=== PATIENT | female | born 2000 | race Caucasian/White ===

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

== ENCOUNTER 2019-03-27 11:59 | Outpatient (CLI) | payer MEDICAID | END 2019-03-27 23:59 | disposition home or self-care (01) | LOC: RAD 11:59 | PROVIDERS: ATTEND Registered Nurse | DX: G93.2 Benign intracranial hypertension (principal); H47.10 Unspecified papilledema; F43.10 Post-traumatic stress disorder, unspecified | CPT/HCPCS: 95816 ==

== ENCOUNTER 2019-06-22 18:07 | Emergency (ER) | payer OTHER, MEDICAID ==
[~2019-06-22] VITALS: Ht 172.7 cm; Wt 90.0 kg
[2019-06-22] MEDS ORDERED: ORPH100T2 PO (19:20)
[2019-06-22 19:28] VITALS: BP 132/84
== END 2019-06-22 19:25 | disposition home or self-care (01) ==
LOC: ER 18:08
DX: S09.90XA Unspecified injury of head, initial encounter (principal); G44.209 Tension-type headache, unspecified, not intractable; F31.9 Bipolar disorder, unspecified; Z79.899 Other long term (current) drug therapy; V98.8XXA Other specified transport accidents, initial encounter; Y93.89 Activity, other specified; Y92.488 Other paved roadways as the place of occurrence of the external cause; Y99.8 Other external cause status
CPT/HCPCS: 99283

== ENCOUNTER 2020-08-11 11:43 | Outpatient (CLI) | payer MEDICAID ==
[2020-08-11] VITALS (18 sets, daily range): BP systolic 99–128; BP diastolic 64–80
[~2020-08-11 11:43] MED LIST changes: +ORPH100T2 PO
== END 2020-08-11 23:59 | disposition home or self-care (01) ==
LOC: CARD DIAG 11:43
PROVIDERS: ATTEND Family Medicine
DX: R55 Syncope and collapse (principal)
CPT/HCPCS: 93660

== ENCOUNTER 2021-08-27 19:25 | Emergency (ER) | payer MEDICAID ==
[~2021-08-27] VITALS: Ht 170.2 cm; Wt 77.3 kg
[2021-08-27 20:05] VITALS: BP 110/74
[2021-08-27] MEDS ORDERED: dexamethasone sod phosphate 10mg/ml inj IM STA (20:27)
[2021-08-27] MEDS ORDERED: amox tr/potassium clavulanate 875/125mg TAB PO ONE (20:30)
[2021-08-27] MEDS ORDERED: clindamycin 150mg capsule PO ONE (20:30)
[2021-08-27] MEDS ORDERED: DEC4T PO (20:36)
[2021-08-27] MEDS ORDERED: AMOX-117 PO (20:36)
[2021-08-27] MEDS ORDERED: CLIN300C71 PO (20:36)
== END 2021-08-27 20:52 | disposition home or self-care (01) ==
LOC: ER 19:26
DX: K04.7 Periapical abscess without sinus (principal); Z88.8 Allergy status to other drugs, medicaments and biological substances; Z79.899 Other long term (current) drug therapy; Z31.9 Encounter for procreative management, unspecified
CPT/HCPCS: 96372; 99283; J1100

== ENCOUNTER 2022-07-09 14:22 | Emergency (ER) | payer MEDICAID ==
[~2022-07-09] VITALS: Ht 172.7 cm; Wt 86.4 kg
[~2022-07-09 14:22] MED LIST changes: +DEC4T PO; -NORE-87 PO; +[UNRECOGNIZED DRUG - CODE] PO
[2022-07-09 14:34] VITALS: BP 132/59
[2022-07-09] MEDS ORDERED: ondansetron/PF 4mg/2ml inj IV ONE (15:45)
[2022-07-09] MEDS ORDERED: normal saline 1000ML IV soln IVB ONE (15:45)
[2022-07-09 15:57] LABS: BASOPHILS % (AUTO) 0.3 % (0-1); EOSINOPHILS % (AUTO) 1.2 % (0-6); HEMOGLOBIN 13.2 g/dl (12.0-16.0); LYMPHOCYTES # (AUTO) 1.8 X10'3 (1.1-4.8); LYMPHOCYTES % (AUTO) 42.9 % (21-51); MEAN CORPUSCULAR HEMOGLOBIN 28.9 PG (27.0-31.0); MEAN CORPUSCULAR HGB CONC 33.9 g/dL (33.0-36.5); MEAN CORPUSCULAR VOLUME 85.3 FL (78-98); MEAN PLATELET VOLUME 8.4 FL (7.4-10.4); MONOCYTES # (AUTO) 0.5 X10'3 (0-0.9); MONOCYTES % (AUTO) 10.8 % (2-12); NEUTROPHILS # (AUTO) 1.9 X10'3 (1.8-7.7); NEUTROPHILS % (AUTO) 44.8 % (42-75); PLATELET COUNT 155 X10'3 (140-440); RED BLOOD COUNT 4.58 X10'6 (4.20-5.60); RED CELL DISTRIBUTION WIDTH 12.3 % (11.5-14.5); WHITE BLOOD COUNT 4.3 X10'3 (4.5-11.0)
[2022-07-09 16:11] LABS: ALANINE AMINOTRANSFERASE 41 U/L (12-78); ALBUMIN 3.9 G/DL (3.4-5.0); ALKALINE PHOSPHATASE 65 IU/L (46-116); ANION GAP 9 (8-16); ASPARTATE AMINO TRANSFERASE 27 U/L (10-37); BILIRUBIN,TOTAL 0.3 MG/DL (0.1-1.0); BLOOD UREA NITROGEN 9 MG/DL (7-18); BUN/CREATININE RATIO 11.8 (6.6-38.0); CALCIUM 8.7 MG/DL (8.5-10.1); CHLORIDE 105 MMOL/L (99-107); CREATININE 0.76 MG/DL (0.40-0.90); GLUCOSE 92 MG/DL (70-104); POTASSIUM 3.7 MMOL/L (3.5-5.1); SODIUM 140 MMOL/L (135-145); TOTAL CARBON DIOXIDE 26.5 MMOL/L (24-32); TOTAL PROTEIN 7.8 G/DL (6.4-8.2); eGFR > 90 ML/MIN
[2022-07-09 16:13] LABS: CLARITY,URINE CLEAR (Clear); COLOR,URINE YELLOW (Yellow); GLUCOSE, URINE NEGATIVE (Neg); KETONES,URINE NEGATIVE (Neg); LEUKOCYTE ESTERASE ,URINE NEGATIVE (Neg); NITRITES, URINE NEGATIVE (Neg); OCCULT BLOOD,URINE NEGATIVE (Neg); PH,URINE 7.5 (4.8-8.0); PROTEIN,URINE NEGATIVE (Neg); UROBILINOGEN,URINE 0.2 E.U/dL (0.2-1.0)
[2022-07-09] MEDS ORDERED: ONDA4TAB12 PO (16:34)
[2022-07-09 16:37] LABS: UA COLLECTION TYPE CLN CATCH MIDSTREAM
== END 2022-07-09 17:25 | disposition home or self-care (01) ==
LOC: ER 14:22
DX: B34.9 Viral infection, unspecified (principal); J06.9 Acute upper respiratory infection, unspecified; R19.7 Diarrhea, unspecified; R53.83 Other fatigue; F31.9 Bipolar disorder, unspecified; Z88.8 Allergy status to other drugs, medicaments and biological substances
CPT/HCPCS: 36415; 71045; 80053; 81003; 85025; 96374; 99284; J2405; J7030

== ENCOUNTER 2025-07-04 12:34 | Emergency (ER) | payer MEDICAID ==
[~2025-07-04] VITALS: Ht 172.7 cm; Wt 78.4 kg
[~2025-07-04 12:34] MED LIST changes: +ONDA-243 PO; -ORPH100T2 PO; +ORPH100T4 PO; +[UNRECOGNIZED DRUG - CODE] PO; -[UNRECOGNIZED DRUG - CODE] PO
[2025-07-04 12:46] VITALS: TEMP 97.5
--- NOTE | 2025-07-04 12:52 | Physician Documentation ---
History of Present Illness ~ Chief Complaint: Shortness of Breath Stated Complaint: POSS PULMONARY BLOOD CLOTS Time Seen by MD: 15:57 Primary Medical Doctor: galdino lugo Source: patient Mode of Arrival: POV Exam Limitations: no limitations HPI 25-year-old female [facility] department due to elevated D-dimer and pulmonary artery. Patient is actively miscarrying at 9 weeks. Patient started bleeding and miscarrying 3 days ago. Patient went in to [facility] for chest pain and shortness of breath. She apparently had an elevated D-dimer. Patient states the chest pain and shortness of breath has worsened over the night. Patient states that this is her 5th miscarriage has 1 live child. 6 para 1 concerns for pulmonary embolism Medication Reconciliation Allergies: Coded Allergies: diphenhydramine (Verified Allergy, Severe, PSYCHOSIS AND TERRORS, 07/04/25) prochlorperazine (Verified Allergy, Severe, PSYCHOSIS AND TERRORS, 07/04/25) fentanyl (Verified Allergy, Unknown, 07/04/25) Discontinued Medications Aripiprazole (Abilify), 1 TAB PO HS, (Reported) Discontinued Reason: completed med therapy Dexamethasone (Decadron), 8 MG PO ONCE Discontinued Reason: patient no longer taking Escitalopram Oxalate (Lexapro), 1 TAB PO HS, (Reported) Discontinued Reason: patient no longer taking Norethindrone-E.estradiol-Iron (Microgestin Fe 1-20 Tablet), 1 TABLET PO DAILY, (Reported) Discontinued Reason: patient no longer taking ONDANSETRON ODT 4mg tablet (Ondansetron Odt), 1 TABLET PO Q6H Discontinued Reason: patient no longer taking Orphenadrine Citrate (Norflex), 1 TAB PO Q12H PRN Discontinued Reason: patient no longer taking Past Medical History Past Medical History: *RENAL/*, Bipolar Past Surgical History: no surgical history Alcohol Use: None Drug Use: none Lives with: Family Lives In: Home Occupation: employed Review of Systems All Other Systems at this time: Reviewed and Negative ROS As stated above in the HPI, otherwise all systems are reviewed and negative. Respiratory: Reports: see HPI Physical Exam Vital Signs: RN Vital Signs have been reviewed: Yes, Temperature: 97.5, Source: Temporal, Heart Rate: 76, Respiratory Rate: 18, BP: 127/56, Pulse Oximetry: 97, Weight: 78.400 Oxygen Flow Rate: 0 Physical Exam General: Alert, no apparent distress. HEENT: moist mucous membranes. Neck: Full range of motion. Respiratory: No respiratory distress speaking in full sentences Chest: No accessory muscle use. Cardiovascular: Appears well perfused Neurologic: Oriented x4. Psychiatric: Normal mood and affect. Skin: Normal color, warm and dry. No edema, no ecchymosis. Progress Results/Orders Results/Orders Orders - [facility] [employer] Cta Chest Pe (07/04/25 18:00) Completed Orders - [facility] [employer] Cta Chest Pe (07/04/25 18:00) Iohexol 350mg/Ml 100ml (Omnipaque 350mg/ (07/04/25 17:42) Vital Signs 07/04/25 07/04/25 07/04/25 07/04/25 12:46 18:00 18:03 18:04 Temp 97.5 Pulse 76 74 Resp 18 16 17 B/P (MAP) 127/56 108/57 (74) Pulse Ox 97 100 100 O2 Delivery Room Air* O2 Flow Rate 0 0 0 FiO2 21 21 Laboratory Tests Test 07/04/25 13:15 07/04/25 15:29 07/04/25 16:26 White Blood Count 5.8 Red Blood Count 4.58 Hemoglobin 13.2 Hematocrit 39.3 Mean Corpuscular Volume 85.8 Mean Corpuscular Hemoglobin 28.9 Mean Corpuscular Hemoglobin Concent 33.7 Red Cell Distribution Width 12.4 Platelet Count 156 Mean Platelet Volume 9.1 Neutrophils (%) (Auto) 66.1 Lymphocytes (%) (Auto) 23.8 Monocytes (%) (Auto) 8.6 Eosinophils (%) (Auto) 1.3 Basophils (%) (Auto) 0.2 Neutrophils # (Auto) 3.8 Lymphocytes # (Auto) 1.4 Monocytes # (Auto) 0.5 Eosinophils # (Auto) 0.1 Basophils # (Auto) 0.0 CBC Comment D-Dimer 1.50 H D-Dimer Comment Sodium Level 140 Potassium Level 4.5 Chloride Level 107 Carbon Dioxide Level 25.2 Anion Gap 8 Blood Urea Nitrogen 8 Creatinine 0.72 Estimated GFR/1.73 m2 > 90 BUN/Creatinine Ratio 11.1 Glucose Level 91 Calcium Level 9.0 Troponin I High Sensitivity < 4 L < 4 L < 4 L Troponin I High Sens Percent Delta Troponin I Hi Sens Absolute Change Pro-B-Type Natriuretic Peptide < 30 Albumin 4.2 Chemistry Comments Medical Decision Making Additional information obtaine: other Findings She underwent a full laboratory diagnostics that were negative for any cardiac findings at this time. X-rays negative for any concerning findings at this time. CTA was performed due to an elevated D-dimer of 1.5 at this time. Patient is currently experiencing a miscarriage as previously diagnosed at a visit yesterday this may account for the elevated D-dimer of 1.5, we have gone ahead and performed a CTA which was negative here in the emergency department to rule out PE at this time. Patient: 25-year-old female, , presenting with chest pain and shortness of breath in the setting of active miscarriage at 9 weeks gestation Chief Complaint: Chest pain and shortness of breath, worsening overnight, with elevated D-dimer noted at outside facility History of Present Illness: Patient was referred from [facility] for evaluation of possible pulmonary embolism. She began miscarrying 3 days ago and is currently at 9 weeks gestation. This represents her 5th miscarriage with 1 living child. She initially presented to [facility] with chest pain and shortness of breath, where an elevated D-dimer of 1.5 mg/L was noted. Symptoms have worsened overnight prompting return to emergency department. Patient underwent laboratory diagnostics and ultrasound yesterday that showed the fetus had no heartbeat with a resolving hCG, confirming ongoing miscarriage. Risk Assessment: Patient has multiple risk factors for venous thromboembolism including state (4-5 fold increased risk), active miscarriage, and history of recurrent loss (5 miscarriages) which raises concern for possible underlying thrombophilia. [1-3] However, D-dimer levels physiologically increase during , particularly in the first trimester, with established reference ranges up to 1.01-1.20 mg/L in the first trimester. [4-6] The patient's D-dimer of 1.5 mg/L, while elevated above the standard non- cutoff of 0.5 mg/L, falls within the range that can be seen in normal first trimester and -related complications including mi scarriage. [4][6-7] Given worsening cardiopulmonary symptoms and elevated D-dimer in the clinical context, pulmonary embolism could not be excluded without definitive imaging. Diagnostic Workup: Initial evaluation included ECG, chest radiograph, and labor atory studies to exclude alternative diagnoses such as cardiac ischemia, anemia, or infection. Laboratory diagnostics with the exception of a D-dimer of 1.5 mg/L were all negative. Chest x-ray was negative for any concerning findings. Given clinical suspicion based on symptoms and elevated D-dimer in the setting of -related VTE risk factors, CT pulmonary angiography was performed based on the D-dimer of 1.5 mg/L. CTA was negative for pulmonary embolism or any other concerning findings at this time. Diagnosis: Chest pain and shortness of breath in the setting of active miscarriage. Pulmonary embolism ruled out by negative CT pulmonary angiography. The elevated D-dimer of 1.5 mg/L is attributable to the patient's state and ongoing miscarriage, as D-dimer levels are physiologically elevated during and in -related complications. [4][6-8] Treatment and Disposition: Pulmonary embolism was safely excluded based on negative CT pulmonary angiography. Patient's symptoms are likely related to the physiologic stress of miscarriage and anxiety associated with loss. Supportive care provided. Patient is currently experiencing a miscarriage that has been in progress for the last couple of days. No anticoagulation indicated given negative imaging. Follow-up Plan: Primary care provider follow-up for ongoing management and support during miscarriage recovery Obstetrics/gynecology follow-up for management of miscarriage and evaluation of recurrent loss Given history of 5 miscarriages, recommend thrombophilia evaluation after acute event resolves, as inherited thrombophilias (Factor V Leiden, prothrombin gene mutation, protein S deficiency) are associated with recurrent loss and may guide future management [3][9] Patient will return to the emergency department with any worsening or recurrent symptoms including chest pain, shortness of breath, leg swelling, hemodynamic instability, or heavy vaginal bleeding Return precautions discussed and understood by patient Complexity of Medical Decision Making: High complexity given need to evaluate for life-threatening pulmonary embolism in patient with multiple risk factors, interpretation of D-dimer in the context of early and miscarriage, consideration of radiation exposure risks, and coordination of care between emergency medicine and obstetrics services. Decision-making required understanding of -specific D-dimer reference ranges and appropriate use of imaging to safely exclude pulmonary embolism while minimizing unnecessary radiation exposure. Heart Score: 0 Differential Dx:Considerations: Include: anxiety, asthma, bronchitis, cardiogenic shock, CHF, COPD, dysrhythmia, hypertension, accelerated, hypertension, essential, hypertension, malignant, hyperventilation, hyponatremia, myocardial infarction, panic attack, pneumonia, pneumonitis, pneumothorax, PSVT, pulmonary embolism, respiratory distress, respiratory failure, sinusitis, upper resp. infection, other Departure Disposition: 01 HOME / SELF CARE / HOMELESS Impression: Primary Impression: Shortness of breath Condition: Stable Discharge Instructions: Miscarriage, Nory-la-Phiz, Shortness of Breath, Adult, Hket-bz-Jaee Additional Instructions: Your Diagnosis You came to the emergency department with chest pain and shortness of breath. We performed testing including blood work, chest x-ray, and a CT scan of your chest. These tests ruled out a blood clot in your lungs (pulmonary embolism). Your symptoms are related to your ongoing miscarriage. You are currently experiencing a miscarriage. This is a difficult time, and we want to make sure you know what to expect and when to seek help. What to Expect at Home During a miscarriage, you may experience: Vaginal bleeding (can range from light to heavy) Cramping and lower abdominal pain Passage of tissue or clots When to Return to the Emergency Department Come back to the emergency department immediately if you experience any of the following: Heavy Bleeding: Soaking through more than 2 pads per hour for 2 hours in a row Passing large blood clots (larger than a golf ball) Signs of Infection: Fever over 100.4F (38C) Foul-smelling vaginal discharge Severe abdominal pain that is not relieved by [id number] pain medication Chest or Breathing Problems: Worsening chest pain Worsening shortness of breath Coughing up blood Sudden severe chest pain Leg pain, swelling, or redness (especially in one leg) Other Concerning Symptoms: Dizziness or fainting Feeling lightheaded when standing Confusion Severe weakness Follow-Up Care Follow up with your primary care provider as scheduled You should also follow up with your MEDICATION ADMINISTRATION PROFESSIONAL for management of your miscarriage and to discuss your history of recurrent loss Pain Management You may take ibuprofen (Advil, Motrin) or acetaminophen (Tylenol) as directed on the package for cramping and pain A heating pad on your lower abdomen may help with cramping Activity Rest as needed Avoid strenuous activity for the next few days You may resume normal activities as you feel able Important Notes Do not use tampons, douche, or have sexual intercourse until the bleeding has stopped and you have been cleared by your MEDICATION ADMINISTRATION PROFESSIONAL It is normal to have some bleeding for up to 2 weeks after a miscarriage If you have any questions or concerns, please contact your primary care provider or MEDICATION ADMINISTRATION PROFESSIONAL. If you cannot reach them and have urgent concerns, return to the emergency department. We understand this is a difficult time. Please reach out to your healthcare providers for support and follow-up care. Referrals: NO PRIMARY CARE PROVIDER (PCP) Education Educated: Patient Educated regarding: diagnosis, treatment, need for follow up Signature Scribe Signature: A Attestation: Scribed for Marlee Al by INEZ Swan . 07/04/25 19:20 MAEGAN PABLO NP Jul 04, 2025 12:52 MARLEE AL Jul 04, 2025 19:18
--- NOTE | 2025-07-04 12:55 | ELECTROCARDIOGRAPH REPORT ---
[facility] Test Date: 2025-07-04 Test Time: 12:54:46 Pat Name: JANE AIKEN Department: [facility] Patient ID: [id number] Room: Gender: F [employer]: : 2000 Requested By: SERA GIMENEZ Order Number: [id number] Reading MD: Dr. Rolly Rodríguez Measurements Intervals [place] Rate: 92 P: 72 IA: 126 QRS: 59 QRSD: 105 T: -36 QT: 363 QTc: 450 Interpretive Statements Sinus rhythm Borderline repolarization abnormality Electronically Signed On 07-05-2025 11:18:[address] Rolly Rodríguez Please click the below link to view image of tracing.
[2025-07-04 13:32] LABS: MEAN PLATELET VOLUME 9.1 FL (7.4-10.4); RED CELL DISTRIBUTION WIDTH 12.4 % (11.5-14.5)
--- NOTE | 2025-07-04 13:32 | RADIOLOGY REPORT ---
DI CHEST,SINGLE VIEW, HISTORY: CP COMPARISON: CHEST,SINGLE VIEW on DOS: 07/09/22 CHEST,SINGLE VIEW on DOS: 07/09/22 TECHNICAL DATA: 1 view of the chest was obtained. FINDINGS: Lines and tubes: None Cardiomediastinal silhouette: normal Pulmonary vasculature: normal Lung expansion: normal Lung airspace: normal Lung interstitium: normal Pleura: normal Pneumothorax: no Bones: Unremarkable Other: no IMPRESSION: No acute intrathoracic abnormality.
[2025-07-04 13:52] LABS: CREATININE 0.72 MG/DL (0.40-0.90); PRO BRAIN NATRIURETIC PEPTIDE < 30 PG/ML (0-125); TOTAL CARBON DIOXIDE 25.2 MMOL/L (24-32); eCRCL 119 ML/MIN; eGFR > 90 ML/MIN
--- NOTE | 2025-07-04 18:52 | RADIOLOGY REPORT ---
COMPUTERIZED TOMOGRAPHIC ANGIOGRAPHY OF THE CHEST WITH INTRAVENOUS CONTRAST REASON FOR EXAM: chest pain, elevated d-dimer COMPARISON: DI CHEST,SINGLE VIEW on DOS: 07/04/25, CHEST,SINGLE VIEW on DOS: 07/09/22 TECHNIQUE: The exam was performed on a multidetector spiral scanner. Spiral images were acquired from the thoracic inlet through the adrenal glands, during the bolus intravenous administration of contrast. Multiplanar maximum intensity projection (MIP) images were provided. Radiation optimization: All CT scans at this facility use at least one of these dose optimization techniques: Automated exposure control mA and/or kV adjustment per patient size (includes targeted exams where dose is matched to clinical indication) or iterative reconstruction. CONTRAST ADMINISTERED: 100 mL omnipaque 350 intravenously. RADIATION DOSE: CTDI: 12 mGy DLP: 418 mGy-cm FINDINGS: No focal airspace disease is identified. There is no bronchiectasis or honeycombing. No significant pulmonary nodule or mass is identified. There is no pleural effusion. There is no pneumothorax. The heart is not enlarged. There is no pericardial effusion. There is no thoracic aortic aneurysm or dissection. There is no pulmonary arterial filling defect as far as the interlobar level to suggest pulmonary embolism. Evaluation is degraded by respiratory motion artifact and contrast bolus timing. No pathologic lymphadenopathy is identified by size criteria. No acute osseous abnormality is identified. IMPRESSION: No evidence of pulmonary embolism as far as the interlobar level. No focal airspace disease. No pleural effusion.
[2025-07-04 19:33] VITALS: BP 110/75; PULSE 76; RESP 16; O2SAT 99
== END 2025-07-04 19:36 | disposition home or self-care (01) ==
LOC: ER 12:35
DX: R06.02 Shortness of breath (principal); F31.9 Bipolar disorder, unspecified; Z88.8 Allergy status to other drugs, medicaments and biological substances; Z79.899 Other long term (current) drug therapy; Z88.5 Allergy status to narcotic agent
CPT/HCPCS: 36415; 71045; 71275; 80048; 83880; 84484; 85025; 85379; 93005; 99285; Q9967